=== PATIENT | female | born 1965 | race Hispanic/Latino ===

== ENCOUNTER 2016-08-30 11:38 | Emergency (ER) | payer SELFPAY ==
[2016-08-30 12:02] VITALS: BP 123/76
[2016-08-30 12:32] LABS: Basophils % (Auto) 0.4 % (0.0-1.8); Eosinophils % (Auto) 1.3 % (0.0-4.3); Hematocrit 29.7 % (30.3-42.9); Mean Corpuscular HGB Conc 30 % (30-34); Mean Corpuscular Volume 79 fl (79-97); Platelet Count 286 K/mm3 (140-440); Red Blood Count 3.75 M/mm3 (3.65-5.03); White Blood Count 7.7 K/mm3 (4.5-11.0)
[2016-08-30 12:33] LABS: Mean Corpuscular Hemoglobin 24 pg (28-32); Red Cell Distribution Width 21.6 % (13.2-15.2)
[2016-08-30 12:36] LABS: Anion Gap 21 mmol/L; Blood Urea Nitrogen 6 mg/dL (7-17); Calcium 8.9 mg/dL (8.4-10.2); Carbon Dioxide 19 mmol/L (22-30); Chloride 103.1 mmol/L (98-107); Glucose 169 mg/dL (65-100); Potassium 3.1 mmol/L (3.6-5.0); Sodium 140 mmol/L (137-145)
[2016-08-30] MEDS ORDERED: K-DUR PO ONE (13:07)
--- NOTE | 2016-08-30 14:55 | Emergency Department Report ---
HPI - General Chief Complaint: Recheck/Abnormal Lab/Rx Time Seen by Provider: 08/30/16 12:05 - HPI HPI: This is a 51-year-old female who presents to the emergency department from [facility] for rechecks of some abnormal labs found recently. The patient had tried to kill herself last week by overdosing on Dilantin, which she says she takes for seizures. There is lab work from 08/21 that shows a hemoglobin of 9.4. There is blood work done on 08/28/16 that shows a hemoglobin of 7.7 and a phenytoin level of 26.7. The patient self has no complaints including no signs of chest pain, shortness of breath, fever, nausea , vomiting. She has a past medical history of seizures and hypothyroidism. ED Past Medical Hx - Past Medical History Previous Medical History?: Yes Hx Seizures: Yes Hx Psychiatric Treatment: Yes (MDD) Additional medical history: hypothyroidism - Surgical History Past Surgical History?: No - Social History Smoking Status: Never Smoker Substance Use Type: None - Medications Home Medications: Home Medications Medication Instructions Recorded Confirmed Last Taken Type AtorvaSTATin [Lipitor] 10 mg PO QHS 08/30/16 08/30/16 08/29/16 History Doxepin [SINEquan] 150 mg PO DAILY 08/30/16 08/30/16 08/29/16 History Ensure 1 can PO TID 08/30/16 08/30/16 08/29/16 History LORazepam [Ativan] 2 mg IM Q6HR PRN 08/30/16 08/30/16 08/29/16 History Levothyroxine [Synthroid] 12.5 mcg PO QAM 08/30/16 08/30/16 08/29/16 History Phenytoin [Dilantin] 300 mg PO QHS 08/30/16 08/30/16 08/29/16 History Sertraline [Zoloft] 200 mg PO QDAY 08/30/16 08/30/16 08/29/16 History Topiramate [Topamax] 200 mg PO BID 08/30/16 08/30/16 08/29/16 History clonazePAM [KlonoPIN] 3 mg PO QHS 08/30/16 08/30/16 08/29/16 History ED Review of Systems ROS: Stated complaint: ABNORMAL LABS Other details as noted in HPI Comment: All other systems reviewed and negative Constitutional: denies: chills, fever Eyes: denies: eye pain, eye discharge, vision change ENT: denies: ear pain, throat pain Respiratory: denies: cough, shortness of breath, wheezing Cardiovascular: denies: chest pain, palpitations Gastrointestinal: denies: abdominal pain, nausea, diarrhea Genitourinary: denies: urgency, dysuria, discharge Musculoskeletal: denies: back pain, joint swelling, arthralgia Skin: denies: rash, lesions Neurological: denies: headache, weakness, paresthesias Physical Exam - Physical Exam Vital Signs: Vital Signs 08/30/16 12:01 Temperature 99.4 F Pulse Rate 103 H Respiratory 16 Rate Blood Pressure 123/76 [Left] O2 Sat by Pulse 99 Oximetry Physical Exam: GENERAL: The patient is well-developed well-nourished. HEENT: Normocephalic. Atraumatic. Extraocular motions are intact. Patient has moist mucous membranes. Pupils equal reactive to light bilaterally. NECK: Supple. Trachea is midline. CHEST/LUNGS: Clear to auscultation. There is no respiratory distress noted. HEART/CARDIOVASCULAR: Regular. There is no tachycardia. There is no gallop rub or murmur. ABDOMEN: Abdomen is soft, nontender. Patient has normal bowel sounds. There is no abdominal distention. SKIN: There is no rash. There is no edema. There is no diaphoresis. NEURO: The patient is awake, alert, and oriented. The patient is cooperative. The patient has no focal neurologic deficits. The patient has normal speech. MUSCULOSKELETAL: There is no tenderness or deformity. There is no limitation range of motion. There is no evidence of acute injury. ED Course Vital Signs 08/30/16 12:01 Temperature 99.4 F Pulse Rate 103 H Respiratory 16 Rate Blood Pressure 123/76 [Left] O2 Sat by Pulse 99 Oximetry ED Medical Decision Making - Lab Data Result diagrams: 08/30/16 12:07 08/30/16 12:07 - Medical Decision Making 51-year-old female presents from [facility] with some recent abnormal labs that showed a 2 g drop in her hemoglobin and one day and some elevation phenytoin after the patient intentionally overdosed on phenytoin a few days ago. The labs were rechecked today and the patient's hemoglobin is at 9 which is closer to the initial level. The phenytoin level is at 0.8 which is subtherapeutic and certainly not any toxic level. She had some hypokalemia that was replaced with some potassium chloride. Vital signs stable throughout her ED course. Patient appears safe for discharge back to [facility] at this time. She has been encouraged to return to the ER with any acute distress. Critical Care Time: No Critical care attestation.: If time is entered above; I have spent that time in minutes in the direct care of this critically ill patient, excluding procedure time. ED Disposition Clinical Impression: Hypokalemia Anemia Qualifiers: Anemia type: unspecified type Qualified Code(s): D64.9 - Anemia, unspecified Disposition: DISCHARGED TO HOME OR SELFCARE Is pt being admited?: No Condition: Stable Instructions: Anemia (ED), Hypokalemia (ED) Additional Instructions: Please follow-up with a primary care physician when you're able to do so. Return to the emergency department with any acute distress. Referrals: PRIMARY CARE [Primary Care Provider] - 3-5 Days Time of Disposition: 14:56
== END 2016-08-30 15:40 | disposition home or self-care (01) ==
LOC: EDBD → ED 11:38
DX: E87.6 Hypokalemia (principal); D64.9 Anemia, unspecified; R56.9 Unspecified convulsions; F32.9 Major depressive disorder, single episode, unspecified; E03.9 Hypothyroidism, unspecified
CPT/HCPCS: 36415; 80048; 80185; 84484; 85025; 86850; 86900; 86901; 99285